=== PATIENT | male | born 1935 | race Caucasian/White ===

== ENCOUNTER 2019-07-07 13:14 | Observation (INO) ==
[2019-07-07 14:31] LABS: Hematocrit 42.6 % (37.5-50.1); Hemoglobin 14.8 g/dL (12.9-16.9); Immature Platelets 17.3 % (1.1-6.1); Mean Corpuscular HGB Conc 34.7 g/dL (31.6-35.5); Mean Corpuscular Hemoglobin 31.5 pg (28.0-33.3); Mean Corpuscular Volume 90.6 fL (83.0-100.0); Mean Platelet Volume 13.2 fL (9.4-12.4); Red Blood Count 4.7 M/mcL (4.19-5.50); Red Cell Distribution Width 12.3 % (11.5-14.5); White Blood Count 7.4 K/mcL (4.3-11.1)
[2019-07-07 14:34] LABS: Bilirubin,Urine Negative (Negative); Blood,Urine Negative (Negative); Clarity,Urine Clear (Clear); Color,Urine Yellow (Yellow); Glucose,Urine (UA) 500 mg/dL (Normal); Ketones,Urine Negative (Negative); Leukocyte Esterase,Urine Negative (Negative); Nitrite,Urine Negative (Negative); PH,Urine 5.5 pH Units (5.0-8.0); Protein,Urine Trace mg/dL (Neg-Trace); Specific Gravity,Urine 1.016 (1.010-1.025); Urobilinogen,Urine Normal (Normal)
[2019-07-07 14:37] LABS: BUN/Creatinine Ratio 17 (6-26); Blood Urea Nitrogen 25 mg/dL (8-23); Carbon Dioxide 28 mEq/L (23-29); Chloride 101 mEq/L (98-107); Glucose 279 mg/dL (70-105); Osmolality,Calculated 302 (280-300); Potassium 4.9 mEq/L (3.5-5.1); Sodium 139 mEq/L (136-145); Troponin I < 0.03 ng/mL (< 0.04); eGFR For African Americans 57 (> 60); eGFR For Non-African Americans 47 (> 60)
[2019-07-07] MEDS ORDERED: Carbidopa/Levodopa 25/100 TABLET PO ONE (14:45)
[2019-07-07] MEDS ORDERED: 0.9 % Sodium Chloride 1,000 ML IVC SCH (16:45)
[2019-07-07] MEDS ORDERED: Dextrose Gel 15 GM/37.5 ML TUBE PO PRN ×2 (16:52)
[2019-07-07] MEDS ORDERED: *HR* Dextrose 50 % in Water (Syg) 50 ML SYRINGE IVP PRN (16:52)
[2019-07-07] MEDS ORDERED: D5% in Water 1,000 ML IVC PRN (16:52)
[2019-07-07] MEDS: Carbidopa/Levodopa 25/100 TABLET PO SCH (20:20)
[2019-07-07] MEDS: Insulin LISPRO 300 UNITS/3 ML VIAL SQ SCH (20:29)
[2019-07-08 07:03] LABS: INR 1.2; Prothrombin Time 13.3 Seconds (9.4-12.1)
[2019-07-08 07:09] LABS: Hematocrit 39.8 % (37.5-50.1); Hemoglobin 13.6 g/dL (12.9-16.9); Immature Platelets 17.9 % (1.1-6.1); Mean Corpuscular HGB Conc 34.2 g/dL (31.6-35.5); Mean Corpuscular Hemoglobin 31.9 pg (28.0-33.3); Mean Corpuscular Volume 93.4 fL (83.0-100.0); Mean Platelet Volume 13.5 fL (9.4-12.4); Red Blood Count 4.26 M/mcL (4.19-5.50); Red Cell Distribution Width 12.4 % (11.5-14.5); White Blood Count 6.1 K/mcL (4.3-11.1)
[2019-07-08 07:27] LABS: Alanine Aminotransferase 6 Units/L (7-52); Albumin 4.1 g/dL (3.5-5.7); Albumin/Globulin Ratio 1.6 (1.1-2.2); Alkaline Phosphatase 97 Units/L (34-104); Aspartate Amino Transferase 14 Units/L (13-39); BUN/Creatinine Ratio 16 (6-26); Bilirubin,Total 0.7 mg/dL (0.3-1.0); Blood Urea Nitrogen 22 mg/dL (8-23); Calcium 9.6 mg/dL (8.6-10.3); Carbon Dioxide 26 mEq/L (23-29); Chloride 98 mEq/L (98-107); Chol/HDL Ratio 3.7 (0-4.9); Cholesterol 116 mg/dL (< 200); Globulin 2.5 g/dL (2.4-3.5); Glucose 322 mg/dL (70-105); HDL Cholesterol 31 mg/dL (40-59); LDL Cholesterol,Calculated 59 mg/dL (0-99); Osmolality,Calculated 300 (280-300); Potassium 4.4 mEq/L (3.5-5.1); Sodium 137 mEq/L (136-145); Total Protein 6.6 g/dL (6.4-8.9); Triglycerides 132 mg/dL (< 150); Troponin I < 0.03 ng/mL (< 0.04); eGFR For African Americans > 60 (> 60); eGFR For Non-African Americans 50 (> 60)
[2019-07-08] MEDS: Insulin LISPRO 300 UNITS/3 ML VIAL SQ SCH ×5 (08:49→21:10)
[2019-07-08] MEDS: Carbidopa/Levodopa 25/100 TABLET PO SCH ×3 (08:51→21:10)
[2019-07-08] MEDS: *HR* Rivaroxaban 15 MG TABLET PO SCH (08:51)
[2019-07-08] MEDS: Cholecalciferol (D-3) 1,000 UNIT (25MCG) TABLET PO SCH (08:51)
[2019-07-08 09:46] LABS: Estimated Average Glucose 235 mg/dl
[2019-07-08] MEDS ORDERED: Isovue-370 500 ML BOTTLE IVP ONE ×2 (15:57→15:59)
[2019-07-08] MEDS ORDERED: 0.9 % Sodium Chloride 1,000 ML IVC SCH (16:00)
[2019-07-08] MEDS ORDERED: Insulin DETEMIR 100 UNIT/ML X5UNITS SQ SCH (21:00)
[2019-07-09 03:38] LABS: Mean Platelet Volume 13.3 fL (9.4-12.4); Red Cell Distribution Width 12.2 % (11.5-14.5)
[2019-07-09 03:40] LABS: Hematocrit 37.6 % (37.5-50.1); Hemoglobin 12.8 g/dL (12.9-16.9); Immature Platelets 16.2 % (1.1-6.1); Mean Corpuscular Hemoglobin 31.3 pg (28.0-33.3); Mean Corpuscular Volume 91.9 fL (83.0-100.0); Red Blood Count 4.09 M/mcL (4.19-5.50); White Blood Count 6.6 K/mcL (4.3-11.1)
[2019-07-09 03:47] LABS: BUN/Creatinine Ratio 16 (6-26); Blood Urea Nitrogen 21 mg/dL (8-23); Calcium 9.2 mg/dL (8.6-10.3); Carbon Dioxide 26 mEq/L (23-29); Chloride 106 mEq/L (98-107); Glucose 131 mg/dL (70-105); Osmolality,Calculated 293 (280-300); Potassium 3.9 mEq/L (3.5-5.1); Sodium 139 mEq/L (136-145); eGFR For African Americans > 60 (> 60); eGFR For Non-African Americans 51 (> 60)
[2019-07-09] MEDS: Carbidopa/Levodopa 25/100 TABLET PO SCH ×2 (08:44→15:50)
[2019-07-09] MEDS: Cholecalciferol (D-3) 1,000 UNIT (25MCG) TABLET PO SCH (08:44)
[2019-07-09] MEDS: Insulin LISPRO 300 UNITS/3 ML VIAL SQ SCH ×5 (08:45→17:34)
[2019-07-09] MEDS: *HR* Rivaroxaban 15 MG TABLET PO SCH (08:45)
[2019-07-09 11:56] VITALS: BP 145/64
[2019-07-09] MEDS ORDERED: Insulin LISPRO 300 UNITS/3 ML VIAL SQ SCH (17:00)
[2019-07-09] MEDS ORDERED: Insulin DETEMIR 100 UNIT/ML X5UNITS SQ SCH (21:00)
[2019-07-11] MEDS ORDERED: Furosemide 40 MG TABLET PO SCH (09:00)
== END 2019-07-09 17:53 | disposition home health service (06) ==
LOC: EMEROOARM 13:14 → 3BNU 13:14 → SUATTDRO 15:46 → 3BNU 16:39
PROVIDERS: ADMIT Family Medicine; ATTEND Family Medicine